=== PATIENT | male | born 1995 | race Two or more races ===

== ENCOUNTER 2017-08-07 22:00 | Emergency (ER) | payer MEDICAID ==
[~2017-08-07] VITALS: Ht 177.8 cm; Wt 86.2 kg
[2017-08-07 22:30] VITALS: BP 133/76
[2017-08-07] MEDS ORDERED: IBUPROFEN600 MG ORAL (23:13)
[2017-08-07] MEDS ORDERED: PROMETHAZINE-C118 M1 ORAL (23:13)
--- NOTE | 2017-08-07 23:13 | Emergency Room Report ---
History of Present Illness General Chief Complaint: Upper Respiratory Illness Source: Patient Present Illness HPI Is a 22-year-old male with no past medical history. He presents with chief complaint of fever chills and not feeling well for the last 4 days. Fever subjective. Cough is nonproductive in nature. Worse with lying flat. Also with headache and body pain. Has been taking [id number] medication. Denies any other complaint. Allergies: Coded Allergies: No Known Allergies (Unverified , 08/07/17) Patient History Past Medical History: see triage record, old chart reviewed Past Surgical History: none Pertinent Family History: none Social History: Denies: smoking Immunizations: other Reviewed Nursing Documentation: PMH: Agreed, PSxH: Agreed Nursing Documentation-PMH Past Medical History: No Stated History Review of Systems Constitutional: Reports: chills, fever Eye: Denies: eye pain, blurred vision ENT: Denies: ear pain, nose congestion, throat swelling Respiratory: Reports: cough, shortness of breath Cardiovascular: Denies: chest pain, palpitations Gastrointestinal: Denies: abdominal pain, diarrhea, nausea, vomiting Musculoskeletal: Denies: back pain, joint pain Skin: Denies: rash Neurological: Denies: headache, numbness Endocrine: Denies: increased thirst, increased urine Hematologic/Lymphatic: Denies: easy bruising All Other Systems: negative except mentioned in HPI Physical Exam Vital Signs Date Time Temp Pulse Resp B/P (MAP) Pulse Ox O2 Delivery O2 Flow Rate FiO2 08/07/17 22:21 99.1 110 20 133/76 98 Room Air 99.1 vitals unremarkable Sp02 EP Interpretation: reviewed, normal General Appearance: well appearing, no apparent distress, alert Head: normocephalic, atraumatic Eyes: bilateral eye PERRL, bilateral eye EOMI ENT: hearing grossly normal, normal pharynx, uvula midline - enlarged Neck: full range of motion, supple, no meningismus Respiratory: chest non-tender, lungs clear, normal breath sounds Cardiovascular #1: regular rate, rhythm, no murmur Gastrointestinal: normal bowel sounds, non tender, no mass, no organomegaly, no bruit, non-distended Musculoskeletal: back normal, gait/station normal, normal range of motion Psychiatric: mood/affect normal Skin: warm/dry Medical Decision Making Diagnostic Impression: Primary Impression: Influenza-like illness ER Course Patient with influenza-like illness. No evidence of sepsis, pneumonia, acute abdomen or other serious bacterial infection. He is otherwise stable. Outside of the time frame for Tamiflu. We'll treat symptomatically. Last Vital Signs Date Time Temp Pulse Resp B/P (MAP) Pulse Ox O2 Delivery O2 Flow Rate FiO2 08/07/17 22:30 99.1 20 133/76 98 Room Air 99.1 08/07/17 22:30 110 Status: improved Disposition: HOME, SELF-CARE Condition: Stable Scripts Ibuprofen* (MOTRIN*) 600 Mg Tablet 600 MG ORAL THREE TIMES A DAY, #30 TAB 0 Refills Prov: FLORY TYSON M.D. 08/07/17 Codeine/Promethazine Hcl* (PROMETHAZINE-CODEINE SYRUP*) 118 Ml Syrup 5 ML ORAL Q6H Y for For Cough, #118 ML 0 Refills Prov: FLORY TYSON M.D. 08/07/17 Patient Instructions: Upper Respiratory Infection, Adult Additional Instructions: Follow-up with your DrIsael in 7 days. Return if worse. FLORY TYSON M.D. Aug 07, 2017 23:13
[2017-08-07 23:25] VITALS: BP 133/76
== END 2017-08-07 23:30 | disposition home or self-care (01) ==
LOC: EMR 23:27
DX: J11.1 Influenza due to unidentified influenza virus with other respiratory manifestations (principal)
CPT/HCPCS: 99284